=== PATIENT | male | born 1970 | race Caucasian/White ===

== ENCOUNTER 2016-06-14 20:30 | Emergency (ER) | payer BC ==
[~2016-06-14] VITALS: Ht 182.9 cm; Wt 111.4 kg
[2016-06-14 20:33] VITALS: TEMP 98.7
[2016-06-14] MEDS ORDERED: PRILOSEC 20MG20 MG PO (20:37)
[2016-06-14 22:43] LABS: BASO # 0.1 (0.0-0.2); BASO % 0.5 % (0.0-2.0); EOS # 0.2 (0.0-0.7); EOS % 2.2 % (0-4.0); GRAN # 6.4 (1.4-6.5); GRAN % 62.6 % (42.2-75.2); HEMATOCRIT 42.8 % (42.0-52.0); HEMOGLOBIN 14.6 g/dl (13.5-18.0); LYMPH # 2.1 (1.2-3.4); LYMPH % 20.2 % (20.0-51.0); MEAN CELL VOLUME 92 fl (80.0-100.0); MEAN CORPUSCULAR HEMOGLOBIN 32 pg (27.0-31.0); MEAN CORPUSCULAR HGB CONC 34 g/dl (33.0-37.0); MEAN PLATELET VOLUME 9.1 fl (7.4-10.4); MONO # 1.5 (0.1-0.6); MONO % 14.3 % (1.7-9.3); PLATELET COUNT 317 K/mm3 (130-400); RED BLOOD COUNT 4.64 M/mm3 (4.20-5.60); WHITE BLOOD COUNT 10.2 K/mm3 (4.8-10.8)
[2016-06-14 22:53] LABS: URIC ACID 7.6 mg/dL (3.5-8.5)
[2016-06-14 22:55] LABS: C-REACTIVE PROTEIN 2.6 mg/dL (0.0-0.9)
[2016-06-14 23:07] LABS: ERYTHROCYTE SEDIMENTATION RATE 7 mm/hr (0-15)
[2016-06-14] MEDS ORDERED: NORCO 325 MG-7.1 TAB PO (23:27)
[2016-06-14] MEDS ORDERED: MOBIC 7.5MG7.5 MG PO (23:38)
[2016-06-14 23:59] VITALS: BP 113/70; PULSE 88
== END 2016-06-15 00:14 | disposition home or self-care (01) ==
LOC: COL.ER 20:30
PROVIDERS: Nurse Practitioner
DX: M25.531 Pain in right wrist (principal); M25.431 Effusion, right wrist
CPT/HCPCS: J1885

== ENCOUNTER 2019-09-19 20:27 | Emergency (ER) | payer BC, OTHER ==
[~2019-09-19] VITALS: Ht 180.3 cm; Wt 111.8 kg
[~2019-09-19 20:27] MED LIST: MOBIC 7.5MG7.5 MG PO; NORCO 325 MG-7.1 TAB PO; PRILOSEC 20MG20 MG PO
[2019-09-19 20:28] VITALS: TEMP 98
[2019-09-19] MEDS ORDERED: PERCOCET 325 MG1 TA2 PO (22:24)
[2019-09-19 22:59] VITALS: BP 1115/69; PULSE 75
== END 2019-09-19 23:15 | disposition home or self-care (01) ==
LOC: COL.ER 20:27
DX: S82.851A Displaced trimalleolar fracture of right lower leg, initial encounter for closed fracture (principal); K21.9 Gastro-esophageal reflux disease without esophagitis; V86.56XA Driver of dirt bike or motor/cross bike injured in nontraffic accident, initial encounter; Y92.009 Unspecified place in unspecified non-institutional (private) residence as the place of occurrence of the external cause
CPT/HCPCS: J1170; J2405; J2704; J3010; J7030; Q4045

== ENCOUNTER 2020-12-21 16:46 | Emergency (ER) | payer OTHER ==
[~2020-12-21] VITALS: Ht 180.3 cm; Wt 110.0 kg
[~2020-12-21 16:46] MED LIST changes: +PERCOCET 325 MG1 TA2 PO
[2020-12-21 19:42] LABS: BASO # 0.1 (0.0-0.2); BASO % 0.9 % (0.0-2.0); EOS # 0.3 (0.0-0.7); EOS % 3.1 % (0-4.0); GRAN # 4.8 (1.4-6.5); GRAN % 57.1 % (42.2-75.2); HEMATOCRIT 45.5 % (42.0-52.0); HEMOGLOBIN 15.2 g/dl (13.5-18.0); LYMPH # 2.4 (1.2-3.4); LYMPH % 27.7 % (20.0-51.0); MEAN CELL VOLUME 94 fl (80.0-100.0); MEAN CORPUSCULAR HEMOGLOBIN 31 pg (27.0-31.0); MEAN CORPUSCULAR HGB CONC 33 g/dl (33.0-37.0); MEAN PLATELET VOLUME 8.9 fl (7.4-10.4); MONO # 0.9 (0.1-0.6); PLATELET COUNT 326 K/mm3 (130-400); RED BLOOD COUNT 4.84 M/mm3 (4.20-5.60); REDCELL DISTRIBUTION WIDTH-CV 13.1 % (11.5-14.5)
[2020-12-21 19:56] LABS: ALBUMIN 4.5 gm/dL (3.5-5.0); BILIRUBIN,TOTAL 0.7 mg/dL (0.0-1.0); C-REACTIVE PROTEIN 1.2 mg/dL (0.0-0.9); CALCIUM 9.1 mg/dL (8.4-10.2); CREATININE, serum 0.85 (0.66-1.25); POTASSIUM 4.1 mmol/L (3.4-5.0); TOTAL PROTEIN 8.2 gm/dL (6.4-8.2)
[2020-12-21] MEDS ORDERED: DOXYCYCLINE 10100 MG PO (21:29)
[2020-12-21 22:23] VITALS: BP 128/73; PULSE 89; TEMP 98.7
== END 2020-12-21 22:23 | disposition home or self-care (01) ==
LOC: COL.ER 16:46
PROVIDERS: Nurse Practitioner
DX: L03.115 Cellulitis of right lower limb (principal); K21.9 Gastro-esophageal reflux disease without esophagitis; Z79.899 Other long term (current) drug therapy; Z87.81 Personal history of (healed) traumatic fracture; Z96.698 Presence of other orthopedic joint implants